=== PATIENT | female | born 1950 | race Caucasian/White ===

== ENCOUNTER 2020-02-27 15:03 | Outpatient (CLI) | payer MEDICARE, OTHER, SELFPAY ==
--- NOTE | 2020-02-27 15:10 | XRR_ITS ---
PROCEDURE INFORMATION: Exam: XR Right Foot Complete Exam date and time: 02/27/2020 3:29 PM Age: 69 years old Clinical indication: Other: Dm foot ulcer- medial foot near toes TECHNIQUE: Imaging protocol: XR Right foot. Views: 3 or more views. COMPARISON: No relevant prior studies available. FINDINGS: Bones/joints: Negative for acute bony abnormality. There is mild osteoarthritis seen Soft tissues: Unremarkable XR/XR foot RT min 3V* [id number] IMPRESSION: No acute bone abnormality.
== END 2020-02-27 15:04 | disposition home or self-care (01) ==
LOC: RAD 15:09
PROVIDERS: PCP Internal Medicine; Visit Provider Nurse Practitioner Family
DX: E11.621 Type 2 diabetes mellitus with foot ulcer (principal); L97.919 Non-pressure chronic ulcer of unspecified part of right lower leg with unspecified severity
CPT/HCPCS: 73630

== ENCOUNTER 2020-03-04 09:55 | Outpatient (CLI) | payer MEDICARE, OTHER, SELFPAY | END 2020-03-04 09:56 | disposition home or self-care (01) | LOC: WOUND 09:55 | PROVIDERS: PCP Internal Medicine; Visit Provider Thoracic Surgery (Cardiothoracic Vascular Surgery) | DX: E11.621 Type 2 diabetes mellitus with foot ulcer (principal); L97.512 Non-pressure chronic ulcer of other part of right foot with fat layer exposed | CPT/HCPCS: 11042; A6446; G0463 ==

== ENCOUNTER 2020-03-12 07:53 | Outpatient (CLI) | payer MEDICARE, OTHER, SELFPAY | END 2020-03-12 07:54 | disposition home or self-care (01) | LOC: WOUND 07:54 | PROVIDERS: PCP Internal Medicine; Visit Provider Thoracic Surgery (Cardiothoracic Vascular Surgery) | DX: E11.621 Type 2 diabetes mellitus with foot ulcer (principal); L97.511 Non-pressure chronic ulcer of other part of right foot limited to breakdown of skin | CPT/HCPCS: 11042 ==

== ENCOUNTER 2020-03-19 09:36 | Outpatient (CLI) | payer MEDICARE, OTHER, SELFPAY | END 2020-03-19 09:37 | disposition home or self-care (01) | LOC: WOUND 09:38 | PROVIDERS: PCP Internal Medicine; Visit Provider Thoracic Surgery (Cardiothoracic Vascular Surgery) | DX: E11.621 Type 2 diabetes mellitus with foot ulcer (principal); L97.511 Non-pressure chronic ulcer of other part of right foot limited to breakdown of skin | CPT/HCPCS: 97597; L3260 ==

== ENCOUNTER 2020-03-26 09:08 | Outpatient (CLI) | payer MEDICARE, OTHER, SELFPAY | END 2020-03-26 09:09 | disposition home or self-care (01) | LOC: WOUND 09:08 | PROVIDERS: PCP Internal Medicine; Visit Provider Emergency Medicine | DX: Z09 Encounter for follow-up examination after completed treatment for conditions other than malignant neoplasm (principal) | CPT/HCPCS: 99212 ==

== ENCOUNTER 2020-04-17 12:42 | Outpatient (CLI) | payer MEDICARE, OTHER, SELFPAY ==
--- NOTE | 2020-04-17 13:11 | MM_ITS ---
WS: [id number] BILATERAL DIGITAL SCREENING MAMMOGRAPHY WITH CAD CLINICAL INFORMATION: SCREENING HISTORY: Screening mammogram. No current complaints. COMPARISON: April 09, 2019 TECHNIQUE: Bilateral CC and MLO views. FINDINGS: The breasts are composed of heterogeneous fibroglandular density tissue, which can limit the detectio n of small underlying mass lesions. No suspicious mass, asymmetry, calcifications, or architectural d istortion. No evidence of malignancy. Lucent centered and punctate calcifications. MM/[place] [id number] IMPRESSION: BI-RADS: 2-Benign FOLLOW UP: 1 Year Follow-up Recommend return to annual screening mammography.
== END 2020-04-17 12:43 | disposition home or self-care (01) ==
LOC: RADSHAW 12:48
PROVIDERS: PCP Internal Medicine; Visit Provider Internal Medicine
DX: Z12.31 Encounter for screening mammogram for malignant neoplasm of breast (principal)
CPT/HCPCS: 77067

== ENCOUNTER → 2020-08-12 16:03 | Outpatient (BNVA) | payer MEDICARE, SELFPAY | PROVIDERS: PCP Internal Medicine; Visit Provider Internal Medicine | DX: E11.621 Type 2 diabetes mellitus with foot ulcer (principal); L97.509 Non-pressure chronic ulcer of other part of unspecified foot with unspecified severity; U07.1 COVID-19; E11.9 Type 2 diabetes mellitus without complications; I10 Essential (primary) hypertension | CPT/HCPCS: 80053; 83036; 85025 ==

== ENCOUNTER → 2020-10-07 13:50 | Outpatient (BNVA) | payer MEDICARE, SELFPAY | PROVIDERS: PCP Internal Medicine; Visit Provider Internal Medicine | DX: L98.9 Disorder of the skin and subcutaneous tissue, unspecified (principal); N64.52 Nipple discharge; E11.9 Type 2 diabetes mellitus without complications; I10 Essential (primary) hypertension | CPT/HCPCS: 84146; 84443 ==

== ENCOUNTER 2020-10-09 14:10 | Outpatient (CLI) | payer MEDICARE, SELFPAY ==
--- NOTE | 2020-10-09 14:30 | MM_ITS ---
WS: [id number] DIAGNOSTIC LEFT DIGITAL MAMMOGRAM WITH CAD LEFT breast ultrasound, limited HISTORY: N64.52 - Nipple discharge COMPARISON: 04/17/2020, 04/09/2019 and 03/28/2018 Technique: CC, MLO and ML views. Spot compression LEFT CC Breast composition: There are scattered areas of fibroglandular density. Increased linear density po sterior to the LEFT nipple was not present on the prior examinations. With history of nipple discharge there may be some debris or papilloma within the duct. LEFT breast ultrasound, limited. Posterior to the LEFT nipple near 12:00 is a dilated duct containing debris. There is no increased va scularity within this debris. This area of nodularity within the duct measures 3 x 3 x 3 mm. MM/[place] [id number] IMPRESSION: BI-RADS: 3-Probably Benign FOLLOW UP: 6 Month Follow-up There is a mildly dilated duct with nonvascular internal soft tissue debris. Th is may be duct ectasia. Without increased vascularity this is less likely to be a papilloma. Consider follow-up ultrasound in 6 months. If nipple discharge an d/or bleeding progress consider surgical evaluation for removal.
--- NOTE | 2020-10-09 15:00 | US_ITS ---
WS: [id number] DIAGNOSTIC LEFT DIGITAL MAMMOGRAM WITH CAD LEFT breast ultrasound, limited HISTORY: N64.52 - Nipple discharge COMPARISON: 04/17/2020, 04/09/2019 and 03/28/2018 Technique: CC, MLO and ML views. Spot compression LEFT CC Breast composition: There are scattered areas of fibroglandular density. Increased linear density po sterior to the LEFT nipple was not present on the prior examinations. With history of nipple discharge there may be some debris or papilloma within the duct. LEFT breast ultrasound, limited. Posterior to the LEFT nipple near 12:00 is a dilated duct containing debris. There is no increased va scularity within this debris. This area of nodularity within the duct measures 3 x 3 x 3 mm. US/US breast LT limited* [id number] IMPRESSION: BI-RADS: 3-Probably Benign FOLLOW UP: 6 Month Follow-up There is a mildly dilated duct with nonvascular internal soft tissue debris. Th is may be duct ectasia. Without increased vascularity this is less likely to be a papilloma. Consider follow-up ultrasound in 6 months. If nipple discharge an d/or bleeding progress consider surgical evaluation for removal.
== END 2020-10-09 14:11 | disposition home or self-care (01) ==
LOC: RADSHAW 14:14
PROVIDERS: PCP Internal Medicine; Visit Provider Internal Medicine
DX: N64.52 Nipple discharge (principal)
CPT/HCPCS: 76642; 77065

== ENCOUNTER → 2020-12-24 13:23 | Outpatient (BNVA) | payer MEDICARE, SELFPAY | PROVIDERS: PCP Internal Medicine; Visit Provider Surgery | DX: N60.42 Mammary duct ectasia of left breast (principal); Z20.822 Contact with and (suspected) exposure to COVID-19 | CPT/HCPCS: 87635 ==

== ENCOUNTER 2020-12-29 07:32 | Day surgery (SDC) | payer MEDICARE, SELFPAY ==
[2020-12-26 14:57] VITALS: BMI 33.6
[2020-12-29] VITALS (11 sets, daily range): BP systolic 152–197; BP diastolic 79–98; PULSE 62–78; RESP 16–18; TEMP 36.1–36.8; O2SAT 92–100
--- NOTE | 2020-12-29 | US_ITS ---
WS: [id number] ULTRASOUND-GUIDED LEFT BREAST NEEDLE LOCALIZATION HISTORY: Intraductal lesion. Procedure, risks and complications were explained to the patient. Consent is obtained. Skin is cleansed with ChloraPrep and anesthetized with 1% buffered lidocaine. Needle and guidewire pl aced through the area of concern with no complications. Guidewire is placed within the soft tissue wi thin the duct which is posterior to the nipple. Ultrasound guidance performed during the needle local ization. Guidewire is left within the lesion. Guidewire secured and no complications encountered. Pat ient is being transported to the OR suite. Specimen radiograph is also reviewed. Wire is within the specimen. The lesion is difficult to identif ied as the duct is collapsed. RECOMMENDATIONS: Diagnostic LEFT mammogram 6 months. US/US breast surgical specimen IMPRESSION: 1. Uncomplicated wire localization of a mass within the duct posterior to the LEFT nipple. PATHOLOGY RESULTS: Benign intraductal papilloma. No malignancy.
--- NOTE | 2020-12-29 07:47 | P.ANESASSM_ITS ---
Pre-Anesthetic Assessment Pre-Anesthetic Assessment: Height/Weight: Height 1.57 m Weight 83.461 kg Preop Diagnosis: bloody nipple drainage Proposed Procedure: Operation Date: 12/29/20 10:10 Proposed Procedures p Breast Biopsy Needle Localization [id number] N60.42(Left) - Joe Mcgrath MD Social: Social History: No alcohol and No tobacco Exam: Pre-Anes Outpt Exam: alert, oriented x 3, clear to auscultation b ilaterally and regular rate & rhythm Airway: Submandibular: WNL Cervical ROM: WNL MP: 2 Pulmonary: Pulmonary: None reported CV/HEM: CV/HEM: HTN Metabolic: Metabolic: DM Anesthetic Plan: ASA status: 3 Anesthesia: Anesthesia Evaluation, General, Choice and MAC Risk of > 500 ml blood loss (7ml/kg in children): No PFSH Anesthesia PFSH: Medical History (Updated 12/16/20 @ 16:21 by Joe Mcgrath MD) Arthritis Benign hypertension Glaucoma Primary insomnia Type 2 diabetes mellitus without complications Surgical History (Updated 12/16/20 @ 17:20 by Joe Mcgrath MD) H/O hysterectomy with oophorectomy H/O stem cell transplant joint injection S/P tonsillectomy and adenoidectomy Status post colonoscopy Status post creation of urethral sling by suprapubic approach Family History Other Cancer Hypertension Social History Smoking and tobacco status: never smoked Alcohol intake: never Household members: spouse Housing: House Marital status: Current occupational status: retired History of recent travel: No Data Anesthesia Cardiac Studies: No Data to Display
--- NOTE | 2020-12-29 08:09 | W.PM.OPSUD ---
Surgery/Procedure H&P Update DATE OF PROCEDURE: December 29, 2020 DATE H&P PERFORMED: 12/16/20 H&P UPDATE INFORMATION: I have reviewed H&P completed within last 30 days, I have examined patient prior to procedure and No changes to prior documentation PREOP DIAGNOSIS: bloody nipple drainage PLANNED PROCEDURE: Operation Date: 12/29/20 10:10 Proposed Procedures p Breast Biopsy Needle Localization [id number] N60.42(Left) - Joe Mcgrath MD
[2020-12-29 08:19] LABS: Glucose Point of Care 148 mg/dL (70-110)
[2020-12-29] MEDS: sodium chloride 0.9% 1,000 ML 30 ML IV (08:24)
--- NOTE | 2020-12-29 08:28 | US_ITS ---
WS: [id number] ULTRASOUND-GUIDED LEFT BREAST NEEDLE LOCALIZATION HISTORY: Intraductal lesion. Procedure, risks and complications were explained to the patient. Consent is obtained. Skin is cleansed with ChloraPrep and anesthetized with 1% buffered lidocaine. Needle and guidewire pl aced through the area of concern with no complications. Guidewire is placed within the soft tissue wi thin the duct which is posterior to the nipple. Ultrasound guidance performed during the needle local ization. Guidewire is left within the lesion. Guidewire secured and no complications encountered. Pat ient is being transported to the OR suite. Specimen radiograph is also reviewed. Wire is within the specimen. The lesion is difficult to identif ied as the duct is collapsed. RECOMMENDATIONS: Diagnostic LEFT mammogram 6 months. US/[place] [id number] IMPRESSION: 1. Uncomplicated wire localization of a mass within the duct posterior to the LEFT nipple. PATHOLOGY RESULTS: Benign intraductal papilloma. No malignancy.
[2020-12-29] MEDS: lidocaine 1% INJ 20 mL IM (10:58)
[2020-12-29] MEDS: fentaNYL 50 mcg/mL INJ 2mL IVP ×2 (11:17→11:22)
--- NOTE | 2020-12-29 11:17 | PM.OP ---
Operative Report Date of procedure: December 29, 2020 Pre-op Diagnosis: 1. Bloody left nipple drainage 2. Mammary duct ectasia Post-op Findings: Same Procedure Done: Wire localization left breast lumpectomy Specimens removed/disposition: Left breast mass, short superior, long stitch lateral Surgeon: Joe Mcgrath Anesthesia: MAC Condition: stable Disposition: PACU Procedure: The wire localization of the mammographic abnormality was performed by the radiologist under ultrasound guidance and the patient was transferred to operating room and placed under MAC after IV antibiotic had been administered. The left breast was prepped and draped in a manner . A curvilinear incision was made over the areolar margin at 3'o clock medial to the marking over the mammographic abnormality, subcutaneous tissue was divided and skin flaps were raised medially and laterally. The localization wire was grasped through the incision and using electrocautery the wire along with the breast tissue containing mammographic abnormality was dissected free from the surrounding tissue underneath the nipple. Using 2-0 silk suture, short stitch was placed superiorly and a long stitch was placed laterally.the duct opening which was bleeding was identified with a lacrimal probe and breast tissue underneath the dermis was excised around this duct. The wound was irrigated with saline, hemostasis ensured with electrocautery and subcutaneous tissues approximated using 3-0 running Vicryl suture and skin was closed using running subcuticular 4-0 Monocryl sutures and Dermabond. 1% lidocaine with 0.5% Marcaine was infiltrated into the lumpectomy cavity. Fluffs were used for pressure dressing. Patient was transferred to recovery room and stable condition The lumpectomy specimens were sent to mammography to obtain radiological confirmation of complete excision of the mammographic abnormality. Discussed with Dr. Wilson unfortunately collapsed and could not be visualized on the specimen.
== END 2020-12-29 12:55 | disposition home or self-care (01) ==
PROVIDERS: PCP Internal Medicine; Visit Provider Surgery
PROC: (CPT 19301; principal; 2020-12-29 10:00)
DX: N60.42 Mammary duct ectasia of left breast (principal); I10 Essential (primary) hypertension; E11.9 Type 2 diabetes mellitus without complications; M19.90 Unspecified osteoarthritis, unspecified site
CPT/HCPCS: 19301; 19285; 36416; 82962; 88305; C1889; J0690; J2250; J2704; J3010; J3490; J7030

== ENCOUNTER → 2021-04-09 15:01 | Outpatient (BNVA) | payer MEDICARE, SELFPAY | PROVIDERS: PCP Internal Medicine; Visit Provider Internal Medicine | DX: I10 Essential (primary) hypertension (principal); E11.621 Type 2 diabetes mellitus with foot ulcer; L97.509 Non-pressure chronic ulcer of other part of unspecified foot with unspecified severity | CPT/HCPCS: 83036 ==

== ENCOUNTER 2021-07-01 15:07 | Outpatient (CLI) | payer MEDICARE, SELFPAY ==
--- NOTE | 2021-07-01 15:45 | USCV_ITS ---
Jovanna Berg Age: 71 Gender: F : 1950 Exam Date: 07/01/2021 15:28 Ordering Phys: Jaron Pennington MD Technologist: Ericka Espinoza [place] [facility] [place]: right leg swelling HISTORY: right calf pain, swelling PROCEDURES: Venous duplex imaging was performed in only the right lower extremity. The following venous structures were evaluated: common femoral vein, profunda vein, proximal portion of the greater saphenous vein, superficial femoral vein, and the popliteal vein. In addition, the posterior tibial and peroneal trunk were evaluated. FINDINGS: Edema seen in right medial calf area of interest. Normal 2-D Doppler and augmentation and compressibility throughout the lower extremity venous structures. Additional imaging through the proximal calf veins also reveals no thrombus. Limited evaluation of the greater saphenous vein is patent with no thrombus. CONCLUSIONS No DVT right lower extremity. Mild edema in the soft tissue right calf. Dr. Zakia Wilson DO (Electronically Signed) Final Date: 01 July 2021 15:56 S
== END 2021-07-01 15:08 | disposition home or self-care (01) ==
PROVIDERS: PCP Internal Medicine; Visit Provider Internal Medicine
DX: M79.89 Other specified soft tissue disorders (principal)
CPT/HCPCS: 93971

== ENCOUNTER 2022-02-12 11:38 | Outpatient (CLI) | payer MEDICARE, SELFPAY ==
--- NOTE | 2022-02-12 11:49 | MM_ITS ---
WS: [id number] VIEWS: MLO and CC views both breasts. 3D digital tomosynthesis is also included in this exam. Comparison made with prior exam of 02/18/2016, 03/01/2017, 03/28/2018, 04/09/2019, 04/17/2020. Findings: There was no sign of mass, architectural distortion or suspicious calcification in either breast. He terogeneously dense MM/[place] [id number] Impression: BI-RADS: 2-Benign FOLLOW-UP: 1 Year Follow-up This mammogram was also analyzed by the Computer Aided Detection System R2 Imag e Section Hand Helper.
== END 2022-02-12 11:39 | disposition home or self-care (01) ==
PROVIDERS: PCP Internal Medicine; Visit Provider Internal Medicine
DX: Z12.31 Encounter for screening mammogram for malignant neoplasm of breast (principal)
CPT/HCPCS: 77063; 77067

== ENCOUNTER → 2022-02-15 14:24 | Outpatient (BNVA) | payer MEDICARE, SELFPAY | PROVIDERS: PCP Internal Medicine; Visit Provider Internal Medicine | DX: I10 Essential (primary) hypertension (principal); E11.621 Type 2 diabetes mellitus with foot ulcer; L97.509 Non-pressure chronic ulcer of other part of unspecified foot with unspecified severity; R22.41 Localized swelling, mass and lump, right lower limb | CPT/HCPCS: 80053; 80061; 83721; 84443; 85025 ==

== ENCOUNTER 2022-06-17 13:34 | Outpatient (CLI) | payer MEDICARE, SELFPAY ==
[2022-06-17 14:14] LABS: Estmated Average Glucose 197; Hemoglobin A1C 8.5 % (4.0-6.0)
== END 2022-06-17 13:35 | disposition home or self-care (01) ==
LOC: LAB 13:36
PROVIDERS: PCP Internal Medicine; Visit Provider Internal Medicine
DX: E11.9 Type 2 diabetes mellitus without complications (principal)
CPT/HCPCS: 36415; 83036

== ENCOUNTER → 2022-12-22 13:49 | Outpatient (BNVA) | payer MEDICARE, SELFPAY | PROVIDERS: PCP Internal Medicine; Visit Provider Podiatrist Foot & Ankle Surgery | DX: S92.351A Displaced fracture of fifth metatarsal bone, right foot, initial encounter for closed fracture (principal); X58.XXXA Exposure to other specified factors, initial encounter; E11.9 Type 2 diabetes mellitus without complications; Z79.84 Long term (current) use of oral hypoglycemic drugs | CPT/HCPCS: 73630 ==

== ENCOUNTER 2022-12-22 15:16 | Outpatient (CLI) | payer MEDICARE, SELFPAY | END 2022-12-22 15:17 | disposition home or self-care (01) | LOC: SPT 15:19 | PROVIDERS: PCP Internal Medicine; Visit Provider Podiatrist Foot & Ankle Surgery | DX: Z46.89 Encounter for fitting and adjustment of other specified devices (principal); S92.351D Displaced fracture of fifth metatarsal bone, right foot, subsequent encounter for fracture with routine healing; X58.XXXD Exposure to other specified factors, subsequent encounter | CPT/HCPCS: 97760; 99204; L4361 ==

== ENCOUNTER → 2023-01-13 15:01 | Outpatient (BNVA) | payer MEDICARE, SELFPAY | PROVIDERS: PCP Internal Medicine; Visit Provider Podiatrist Foot & Ankle Surgery | DX: S92.351A Displaced fracture of fifth metatarsal bone, right foot, initial encounter for closed fracture (principal); X58.XXXA Exposure to other specified factors, initial encounter; E11.9 Type 2 diabetes mellitus without complications; Z79.84 Long term (current) use of oral hypoglycemic drugs | CPT/HCPCS: 73630; 99213 ==

== ENCOUNTER → 2023-01-26 14:43 | Outpatient (BNVA) | payer MEDICARE, SELFPAY | PROVIDERS: PCP Internal Medicine; Visit Provider Podiatrist Foot & Ankle Surgery | DX: S92.351A Displaced fracture of fifth metatarsal bone, right foot, initial encounter for closed fracture (principal); X58.XXXA Exposure to other specified factors, initial encounter; E11.9 Type 2 diabetes mellitus without complications; Z79.84 Long term (current) use of oral hypoglycemic drugs | CPT/HCPCS: 73630; 99213 ==

== ENCOUNTER → 2023-02-09 09:35 | Outpatient (BNVA) | payer MEDICARE, SELFPAY | PROVIDERS: PCP Internal Medicine; Visit Provider Podiatrist Foot & Ankle Surgery | DX: S92.351A Displaced fracture of fifth metatarsal bone, right foot, initial encounter for closed fracture (principal); X58.XXXA Exposure to other specified factors, initial encounter; E11.9 Type 2 diabetes mellitus without complications; Z79.84 Long term (current) use of oral hypoglycemic drugs | CPT/HCPCS: 73630; 99213 ==

== ENCOUNTER 2023-02-28 11:31 | Outpatient (CLI) | payer MEDICARE, SELFPAY ==
--- NOTE | 2023-02-28 11:37 | MM_ITS ---
WS: [id number] SCREENING DIGITAL TOMOSYNTHESIS MAMMOGRAM WITH CAD HISTORY: SCREENING COMPARISON: 02/12/2022, 04/17/2020 Bilateral CC and MLO with tomosynthesis views submitted. Synthetic mammography reviewed. Computer aid ed detection analyzed. Breast composition: The breasts are heterogeneously dense, which may obscure small masses. No suspici ous masses, microcalcifications or architectural distortion. Benign calcifications in each breast. MM/[place] [id number] IMPRESSION: BI-RADS: 2-Benign FOLLOW UP: 1 Year Follow-up
== END 2023-02-28 11:32 | disposition home or self-care (01) ==
PROVIDERS: PCP Internal Medicine; Visit Provider Internal Medicine
DX: Z12.31 Encounter for screening mammogram for malignant neoplasm of breast (principal)
CPT/HCPCS: 77063; 77067

== ENCOUNTER → 2023-03-03 08:49 | Outpatient (BNVA) | payer MEDICARE, SELFPAY | PROVIDERS: PCP Internal Medicine; Visit Provider Podiatrist Foot & Ankle Surgery | DX: S92.354A Nondisplaced fracture of fifth metatarsal bone, right foot, initial encounter for closed fracture (principal); X58.XXXA Exposure to other specified factors, initial encounter; E11.9 Type 2 diabetes mellitus without complications; Z79.84 Long term (current) use of oral hypoglycemic drugs | CPT/HCPCS: 73630; 99213 ==

== ENCOUNTER 2023-03-09 07:29 | Outpatient (CLI) | payer MEDICARE, SELFPAY ==
--- NOTE | 2023-03-09 07:42 | MM_ITS ---
WS: [id number] ADDITIONAL VIEWS RIGHT MAMMOGRAM WITH DIGITAL BREAST TOMOSYNTHESIS. RIGHT BREAST ULTRASOUND HISTORY: RT BR BLOODY DISCHARGE COMPARISON: 02/28/2023, 02/12/2022 RIGHT MAMMOGRAM: Spot compression views and true ML with digital breast tomosynthesis and SM. Mildly prominent but unchanged ducts posterior to the nipple. There is no mass. No nipple retraction. RIGHT BREAST ULTRASOUND 2-D and color Doppler imaging submitted. There is a soft tissue mass with increased vascularity within the duct posterior to the RIGHT nipple. This corresponds to the prominent duct seen by mammography. Mass measures at least 6.4 x 7 mm and do es extend towards the nipple. There is an adjacent additional mildly prominent duct which does not co ntain a mass. MM/[place] [id number] IMPRESSION: BI-RADS: 4-Suspicious Finding-Biopsy Should Be Considered FOLLOW UP: Biopsy Recommended 1. Ultrasound-guided biopsy recommended of the intraductal mass posterior to t he RIGHT nipple. Favor this is probably a papilloma. Biopsy and possible surgic al removal recommended. Notified Jaron Pennington MD at 03/09/2023 8:35 AM.
== END 2023-03-09 07:30 | disposition home or self-care (01) ==
LOC: RAD 07:32
PROVIDERS: PCP Internal Medicine; Visit Provider Internal Medicine
DX: N64.52 Nipple discharge (principal); N63.10 Unspecified lump in the right breast, unspecified quadrant
CPT/HCPCS: 76642; 77061; G0279

== ENCOUNTER 2023-03-23 11:53 | Outpatient (CLI) | payer MEDICARE, SELFPAY ==
--- NOTE | 2023-03-23 12:02 | US_ITS ---
WS: [id number] ULTRASOUND-GUIDED RIGHT BREAST BIOPSY CLINICAL INFORMATION: ABNORMAL MAMMO COMPARISON: March 09, 2023 FINDINGS: The procedure including risks, benefits, and complications were discussed with the patient who agreed to proceed. Using sterile technique patient was prepped and draped in the usual sterile fashion. Aft er 1% lidocaine utilizing real-time ultrasound guidance 6 14-gauge cores were obtained of the RIGHT b reast lesion at the nipple. Biopsy clip was not placed. No immediate complications. Pathology demonstrates A. Breast, right, posterior to nipple, ultrasound-guided biopsy: - Small focus of benign intraductal papilloma in a background of stromal sclerosis. - No malignancy identified. US/[place] [id number] IMPRESSION: 1. Uncomplicated ultrasound-guided RIGHT breast biopsy. 2. The pathology demonstrates Small focus of benign intraductal papilloma in a background of stromal sclerosis. 3. Considerably history of bloody nipple discharge recommend surgical excision of the intraductal papilloma. 4. If surgical excision is not performed, recommend 6 month follow-up RIGHT br east diagnostic mammography and ultrasound. BI-RADS: 3-Probably Benign FOLLOW UP: Surgical Biopsy Recommended
== END 2023-03-23 11:54 | disposition home or self-care (01) ==
LOC: RAD 11:54
PROVIDERS: PCP Internal Medicine; Visit Provider Internal Medicine
DX: R92.8 Other abnormal and inconclusive findings on diagnostic imaging of breast (principal)
CPT/HCPCS: 19083; 88305

== ENCOUNTER → 2023-04-14 11:31 | Outpatient (BNVA) | payer MEDICARE, SELFPAY | PROVIDERS: PCP Internal Medicine; Visit Provider Podiatrist Foot & Ankle Surgery | DX: M79.671 Pain in right foot (principal); E11.9 Type 2 diabetes mellitus without complications; Z79.84 Long term (current) use of oral hypoglycemic drugs | CPT/HCPCS: 73630; 99213 ==

== ENCOUNTER 2024-02-14 08:21 | Outpatient (CLI) | payer SELFPAY ==
[2024-02-14 09:21] LABS: HF Add Manual Diff No
[2024-02-14 09:28] LABS: Basophils % 0.6 %; Eosinophils # 0.1 10^3/uL (0.0-0.8); Eosinophils % 2.4 %; Hematocrit 39.5 % (36-47); Lymphocytes # 1.2 10^3/uL (0.8-4.8); Lymphocytes % 25.4 %; Mean Corpuscular HGB Conc 32.4 g/dL (30-55); Mean Corpuscular Volume 92.5 fl (85-98); Mean Platelet Volume 11.6 fL (7.4-10.4); Monocytes # 0.4 10^3/uL (0.2-0.9); Monocytes % 8.4 %; Neutrophils # 2.93 10^3/uL (1.8-7.7); Nucleated Red Blood Cells % 0 %; Platelet Count 191 10^3/cmm (157-399); Red Blood Count 4.27 10^6/uL (3.85-5.65); White Blood Count 4.65 10^3/uL (3.29-11.43)
[2024-02-14 09:46] LABS: Alanine Aminotransferase 18 U/L (0-33); Albumin Level 4.5 g/dL (3.5-5.2); Alkaline Phosphatase 65 U/L (35-105); Aspartate Amino Transferase 19 U/L (0-32); Blood Urea Nitrogen 20 mg/dL (8-23); Calcium 9.7 mg/dL (8.5-10.5); Carbon Dioxide 25 mmol/L (22-29); Chloride 101 mmol/L (98-107); Cholesterol 265 mg/dL (0-200); Glucose 150 mg/dL (65-115); HDL Cholesterol 53 mg/dL (60-100); LDL Cholesterol Calculated 166 mg/dL (50-129); LDL HDL Ratio 3.13 RATIO (0.00-3.22); Osmolality Calculated 293 mOsm/kg (285-295); Sodium 139 mmol/L (136-145); Thyroid Stimulating Hormone 2.55 uIU/mL (0.27-4.20); Total Bilirubin 0.5 mg/dL (0.15-1.2); Total Protein 7.5 g/dL (6.6-8.7); Triglycerides 229 mg/dL (0-150)
[2024-02-14 09:48] LABS: Estmated Average Glucose 140; Hemoglobin A1C 6.5 % (4.0-6.0)
[2024-02-14 10:31] LABS: Anion Gap 17.3 (5-19); Potassium 4.3 mmol/L (3.5-5.1)
== END 2024-02-14 08:22 | disposition home or self-care (01) ==
PROVIDERS: PCP Internal Medicine; Visit Provider Dermatology
DX: Z01.89 Encounter for other specified special examinations (principal)
CPT/HCPCS: 36415

== ENCOUNTER 2024-06-23 09:46 | Emergency (ER) | payer MEDICARE, SELFPAY ==
[2024-06-23 09:50] VITALS: BP 125/63; PULSE 75; RESP 18; TEMP 36.5; O2SAT 96; BMI 32.0
[2024-06-23 09:57] VITALS: BP 107/43; PULSE 77; O2SAT 95
--- NOTE | 2024-06-23 10:01 | ECG_ITS ---
[employer] Test Date: 2024-06-23 Pat Name: Jovanna Berg Department: Room: Gender: Female [employer]: : 1950 Requested By: Mally Luna Order Number: [id number] Lea MD: CALI LEWIS Measurements Intervals Many Rate: 84 P: 41 WY: 191 QRS: -18 QRSD: 93 T: 43 QT: 373 QTc: 441 Interpretive Statements SINUS RHYTHM POSSIBLE ANTERIOR MYOCARDIAL INFARCTION , OF INDETERMINATE AGE [30 ms Q WAVE IN V3/V4, OR R < 0.2 mV IN V4] INFERIOR MYOCARDIAL INFARCTION , PROBABLY OLD [40+ ms Q WAVE AND/OR ST/T ABNORMALITY IN II/aVF] No previous ECG available for comparison Electronically Signed On 06-23-2024 18:08:07 CDT by CALI LEWIS [email or web address]
--- NOTE | 2024-06-23 10:01 | CTR_ITS ---
PROCEDURE INFORMATION: Exam: CT Head Without Contrast Exam date and time: 06/23/2024 10:18 AM Age: 74 years old Clinical indication: Altered mental status/memory loss and visual disturbance; Confusion or disorientation; Additional info: Syncope TECHNIQUE: Imaging protocol: Computed tomography of the head without contrast. Radiation optimization: All CT scans at this facility use at least one of these dose optimization techniques: automated exposure control; mA and/or kV adjustment per patient size (includes targeted exams where dose is matched to clinical indication); or iterative reconstruction. COMPARISON: No relevant prior studies available. RADIATION DOSE METRICS: Total DLP (mGy-cm): 1080.58 FINDINGS: Brain: Severe nonspecific white matter low attenuation which may be related to microvascular ischemic changes. No acute confluent lobar ischemic infarct. No acute intracranial hemorrhage. Cerebral ventricles: The ventricles and sulci are normal in size and shape for the patient's stated age. Paranasal sinuses: No fluid levels. Mastoid air cells: Visualized mastoid air cells are well aerated. Bones: No acute calvarial fracture. Soft tissues: Visualized soft tissues are unremarkable. CT/CT head wo con* [id number] IMPRESSION: No acute intracranial abnormality. If symptoms persist, consider further evaluation with MRI, if MRI is clinically safe to obtain.
--- NOTE | 2024-06-23 10:02 | ED_ITS ---
HPI - Fall 2 General: Chief Complaint: Fall Stated Complaint: AMS; fall Time Seen by Provider: 06/23/24 09:56 History of Present Illness: 74-year-old female who presents the [facility] by ambulance after having had what sounds like a syncopal episode. Apparently her found her down on the ground. She does not remember passing out. Apparently this was not witnessed. She said she been feeling bad since she had her flu and COVID shots the other day. She has no specific pain at this point. No head pain. No neck pain. No chest pain. No abdominal pain. No nausea or vomiting. No fevers. Related Data Home Medications Medication Instructions Recorded Confirmed biotin 1 mg tablet 1 mg PO DAILY 01/23/20 04/14/23 coenzyme Q10 200 mg capsule (Co 200 mg PO DAILY 01/23/20 04/14/23 Q-10) latanoprost 0.005 % eye drops 1 drop ophthalmic (eye) .AT HS 01/23/20 04/14/23 magnesium oxide 500 mg capsule 500 mg PO DAILY 01/23/20 04/14/23 multivitamin 1 tab PO DAILY 01/23/20 04/14/23 brimonidine 0.2 %-timolol 0.5 % 1 drop ophthalmic (eye) BID 04/10/20 04/14/23 eye drops (Combigan) Previous Rx's Medication Instructions Recorded cyanocobalamin (vitamin B-12) See Rx Instructions .Route 06/26/21 1,000 mcg/mL injection solution .COMPLEX #6 mL blood sugar diagnostic (True #100 ea 11/30/21 Metrix Glucose Test Strip) triamcinolone acetonide 0.1 % 1 applic topical BID #80 grams 01/26/22 topical ointment valsartan 320 mg tablet 320 mg PO DAILY #90 tabs 02/02/22 desvenlafaxine succinate 50 mg 50 mg PO DAILY #90 tabs 02/15/22 tablet,extended release 24 hr (Pristiq) metformin 500 mg tablet,extended See Rx Instructions .Route 04/07/22 release 24 hr .COMPLEX #360 tabs spironolactone 25 1 tab PO DAILY #90 tabs 04/07/22 mg-hydrochlorothiazide 25 mg tablet (Aldactazide) lancets 33 gauge (TRUEplus Lancets) 33 gauge .Route QID #100 ea 05/11/22 estradiol 1 mg tablet See Rx Instructions .Route 06/17/22 .COMPLEX #90 tabs meloxicam 15 mg tablet 15 mg PO DAILY #90 tabs 06/17/22 amlodipine 5 mg tablet 5 mg PO DAILY #90 tabs 07/08/22 CAM Boot #1 ea 12/22/22 cefdinir 300 mg capsule 300 mg PO BID 5 days #10 caps 06/23/24 Allergies Allergy/AdvReac Type Severity Reaction Status Date / Time canagliflozin Allergy ALGY-Rash Verified 04/14/23 11:25 [From Invokamet] metformin [From Invokamet] Allergy ALGY-Rash Verified 04/14/23 11:25 Review of Systems 2 Narrative: Constitutional symptoms: Negative except as documented in HPI. Skin symptoms: Negative except as documented in HPI. Eye symptoms: Negative except as documented in HPI. ENMT symptoms: Negative except as documented in HPI. Respiratory symptoms: Negative except as documented in HPI. Cardiovascular symptoms: Negative except as documented in HPI. Gastrointestinal symptoms: Negative except as documented in HPI. Genitourinary symptoms: Negative except as documented in HPI. Musculoskeletal symptoms: Negative except as documented in HPI. Neurologic symptoms: Negative except as documented in HPI. Psychiatric symptoms: Negative except as documented in HPI. Endocrine symptoms: Negative except as documented in HPI. PFSH ED 2 PFSH: Medical History Arthritis Benign hypertension Glaucoma Necrobiosis diabeticorum Primary insomnia Type 2 diabetes mellitus without complications Surgical History H/O hysterectomy with oophorectomy H/O stem cell transplant joint injection S/P lumpectomy, left breast (12/29/20) S/P tonsillectomy and adenoidectomy Status post colonoscopy Status post creation of urethral sling by suprapubic approach Family History Other Cancer Hypertension Social History Smoking and tobacco/nicotine status: never used tobacco/nicotine Alcohol intake: never Substance/Drug Use: never Household members: spouse Housing: House Marital status: Current occupational status: retired Physical Exam 2 Narrative: EXAM NARRATIVE: General: Alert, no acute distress. Skin: Warm, dry. Head: Normocephalic, atraumatic. Neck: Supple, trachea midline. Eye: Extraocular movements are intact. Ears, nose, mouth and throat: mucosa moist. Cardiovascular: Regular, Normal peripheral perfusion. Respiratory: Lungs are clear to auscultation, respirations are non-labored, breath sounds are equal, Symmetrical chest wall expansion. Gastrointestinal: Soft, Nontender, Non distended Musculoskeletal: Normal ROM, no deformity. Neurological: Alert and oriented, No focal neurological deficit observed. Psychiatric: Cooperative, appropriate mood & affect. Course 2 Vital Signs: Vital signs: Vital Signs Temperature 97.7 F 06/23/24 09:50 Pulse Rate 79 06/23/24 12:44 Respiratory Rate 18 06/23/24 09:50 Blood Pressure 110/64 06/23/24 12:44 Pulse Oximetry 95 06/23/24 12:44 Oxygen Delivery Me thod Room Air 06/23/24 11:47 MDM - Fall Medical Decision Making Medical decision making: Differential diagnosis including but not limited to and based on the above HPI, review of systems and physical exam in this patient with syncope: Vasovagal, orthostatics hypotension, cardiac dysrhythmia, myocardial infarction, infection and hypotension, Orders placed to evaluate differential diagnosis based on the above differential, HPI and physical exam CT head: No acute intracranial process. no intracranial hemorrhage, no evidence of infarct. no evidence of acute fracture.This was reviewed and interpreted by myself the ER physician. EKG: Time 11:03 AM. Rate 84. Normal sinus rhythm, No ST-T changes, no ectopy, normal DC & QRS intervals, This was reviewed and interpreted by myself the ER physician at 11:06 AM Lab Review: Laboratory results were reviewed and interpreted by myself the emergency room physician. No leukocytosis. No anemia. BUN/creatinine are 25 and 1 which is at or slightly above her baseline. Urinalysis is concentrated and has 5-10 whites and 1+ bacteria so likely has urinary tract infection and dehydration. I reviewed the patient's medical record. Reexamination: Patient remained stable. No increased work of breathing. No altered mental status. No focal motor deficits. Assessment and plan: Syncope Dehydration Urinary tract infection ?IV Rocephin. Encouraged p.o. fluids. - Discharged home - Discussed findings and plan with patient. Answered any questions. - All laboratory values were reviewed and interpreted personally by myself, the ER physician - All imaging was reviewed and interpreted personally by myself, the ER physician. - Evaluation and treatment of this problem were appropriate in the emergency setting Lab Data 06/23/24 10:11 06/23/24 10:[address] 06/23/24 10:01 IMPRESSION: No acute intracranial abnormality. If symptoms persist, consider further evaluation with MRI, if MRI is clinically safe to obtain. Laboratory Results WBC 3.71 10^3/uL (3.29-11.43) 06/23/24 10:11 RBC 4.42 10^6/uL (3.85-5.65) 06/23/24 10:11 Hgb 12.90 g/dL (11.27-16.99) 06/23/24 10:11 Hct 38.9 % (36-47) 06/23/24 10:11 MCV 88.0 fl (85-98) 06/23/24 10:11 MCH 29.2 pg (27-33) 06/23/24 10:11 MCHC 33.2 g/dL (30-55) 06/23/24 10:11 RDW 12.8 % (12.1-15.1) 06/23/24 10:11 Plt Count 156 10^3/cmm (157-399) L 06/23/24 10:11 MPV 10.1 fL (7.4-10.4) 06/23/24 10:11 Neut % (Auto) 72.9 % 06/23/24 10:11 Lymph % (Auto) 12.1 % 06/23/24 10:11 [place] % (Auto) 12.4 % 06/23/24 10:11 Eos % (Auto) 1.6 % 06/23/24 10:11 Baso % (Auto) 0.5 % 06/23/24 10:11 Neut # (Auto) 2.70 10^3/uL (1.8-7.7) 06/23/24 10:11 Lymph # (Auto) 0.5 10^3/uL (0.8-4.8) L 06/23/24 10:11 [place] # (Auto) 0.5 10^3/uL (0.2-0.9) 06/23/24 10:11 Eos # (Auto) 0.1 10^3/uL (0.0-0.8) 06/23/24 10:11 Baso # (Auto) 0.0 10^3/uL (0.0-0.1) 06/23/24 10:11 Nucleated RBC % (auto) 0 % 06/23/24 10:11 Nucleated RBCs # 0.0 /100WBC 06/23/24 10:11 Sodium 135 mmol/L (136-145) L 06/23/24 10:11 Potassium 4.1 mmol/L (3.5-5.1) 06/23/24 10:11 Chloride 97 mmol/L (98-107) L 06/23/24 10:11 Carbon Dioxide 24 mmol/L (22-29) 06/23/24 10:11 Anion Gap 18.1 (5-19) 06/23/24 10:11 BUN 25 mg/dL (8-23) H 06/23/24 10:11 Creatinine 1.0 mg/dL (0.5-0.9) H 06/23/24 10:11 GFR Calculation Not Reportable 06/23/24 10:11 Glucose 161 mg/dL (65-115) H 06/23/24 10:11 Calculated Osmolality 288 mOsm/kg (285-295) 06/23/24 10:11 Calcium 9.0 mg/dL (8.5-10.5) 06/23/24 10:11 Total Bilirubin 0.8 mg/dL (0.15-1.2) 06/23/24 10:11 AST 22 U/L (0-32) 06/23/24 10:11 ALT 19 U/L (0-33) 06/23/24 10:11 Alkaline Phosphatase 82 U/L (35-105) 06/23/24 10:11 Troponin T Baseline 13 ng/L (0-10) H 06/23/24 10:11 Troponin T 120 Minute 12.91 ng/L (0-10) H 06/23/24 12:03 Delta Troponin T -0.09 ABS# (0-10) L 06/23/24 12:03 Total Protein 6.8 g/dL (6.6-8.7) 06/23/24 10:11 Albumin 4.4 g/dL (3.5-5.2) 06/23/24 10:11 Globulin 2.4 g/dL (1.3-4.6) 06/23/24 10:11 Urine Color Dark yellow (Yellow) A 06/23/24 11:53 Urine Appearance Cloudy (CLEAR) A 06/23/24 11:53 Urine pH 5.0 (5-7) 06/23/24 11:53 Ur Specific [place] 1.028 (1.005-1.030) 06/23/24 11:53 Urine Protein 1+ (Negative) A 06/23/24 11:53 Urine Glucose (UA) Negative (Normal) 06/23/24 11:53 Urine Ketones Trace (Negative) 06/23/24 11:53 Urine Blood Negative (Negative) 06/23/24 11:53 Urine Nitrate Negative (Negative) 06/23/24 11:53 Urine Bilirubin 1+ (Negative) H 06/23/24 11:53 Urine Urobilinogen 1.0 mg/dL (Negative) 06/23/24 11:53 Ur Leukocyte Esterase 1+ (Negative) A 06/23/24 11:53 Urine RBC 3-5 /hpf (0-2) 06/23/24 11:53 Urine WBC 5-10 /hpf (0-5) H 06/23/24 11:53 Ur Squamous Epith Cells 11-20 /hpf (0-5) 06/23/24 11:53 Amorphous Sediment Not Reportable 06/23/24 11:53 Urine Bacteria 1+ /hpf (NONE) H 06/23/24 11:53 Hyaline Casts 51.70 /lpf 06/23/24 11:53 Urine Mucus 1+ /hpf 06/23/24 11:53 All radiology interpretation(s) finalized by discharge Discharge Plan Discharge Patient Disposition: Home Clinical Impression: Syncope, Urinary tract infection Condition: Stable Prescriptions: New cefdinir 300 mg capsule 300 mg PO BID 5 Days Qty: 10 0RF No Action Combigan 0.2-0.5 % drops 1 drop ophthalmic (eye) BID coenzyme Q10 [Co Q-10] 200 mg capsule 200 mg PO DAILY magnesium oxide 500 mg capsule 500 mg PO DAILY biotin 1 mg tablet 1 mg PO DAILY multivitamin Tablet 1 tab PO DAILY latanoprost 0.005 % drops 1 drop ophthalmic (eye) .AT HS triamcinolone acetonide 0.1 % ointment 1 applic topical BID Qty: 80 2RF Rx Instructions: Apply to affected area Tuesday-Tuesday for 4 weeks, then every other week for 1 month. Not for face. amlodipine 5 mg tablet 5 mg PO DAILY Qty: 90 3RF (DME) CAM Boot See Rx Instructions .Route .MEDSUPPLY Qty: 1 0RF Rx Instructions: As directed estradiol 1 mg tablet See Rx Instructions .ROUTE .COMPLEX Qty: 90 3RF Dose Instruction: TAKE 1 TABLET BY MOUTH EVERY DAY OFF 1 WEEK REPEAT CYCLE Rx Instructions: TAKE 1 TABLET BY MOUTH EVERY DAY OFF 1 WEEK REPEAT CYCLE meloxicam 15 mg tablet 15 mg PO DAILY Qty: 90 3RF lancets [TRUEplus Lancets] 33 gauge misc 33 gauge .ROUTE QID Qty: 100 3RF Rx Instructions: 33 gauge four times daily; cyanocobalamin (vitamin B-12) 1,000 mcg/mL solution See Rx Instructions .ROUTE .COMPLEX Qty: 6 6RF Dose Instruction: INJECT 1ML INTRAMUSCULARLY EVERY 14 DAYS (2 WEEKS) Rx Instructions: INJECT 1ML INTRAMUSCULARLY EVERY 14 DAYS (2 WEEKS) (DME) True Metrix Glucose Test Strip Strip See Rx Instructions .ROUTE .MEDSUPPLY Qty: 100 3RF Rx Instructions: Check blood sugar daily as directed valsartan 320 mg tablet 320 mg PO DAILY Qty: 90 3RF desvenlafaxine succinate [Pristiq] 50 mg tablet extended release 24 hr 50 mg PO DAILY Qty: 90 3RF metformin 500 mg tablet extended release 24 hr See Rx Instructions .ROUTE .COMPLEX Qty: 360 3RF Dose Instruction: TAKE 4 TABLETS BY MOUTH EVERY DAY Rx Instructions: TAKE 4 TABLETS BY MOUTH EVERY DAY spironolacton-hydrochlorothiaz [Aldactazide] 25-25 mg tablet 1 tab PO DAILY Qty: 90 3RF Discharge Orders: Discharge ED (Routine); Ordered 06/23/24 Ordered By: Mally Lopez Referrals: Jaron Pennington MD [Primary Care Provider] - Discharge Diet: Usual diet Discharge Activity: Increase activity as tolerated Patient Instructions: Syncope (ED), Urinary Tract Infection in Older Adults (ED) Activity Restrictions/Additional Instructions: Thank you for choosing [facility] for your healthcare needs today. Please realize this is an emergency room and that we are providing you with a medical screening exam and this may not be complete and all inclusive of all the testing and or work up that you may need to determine your ailment or severity of your illness. You have been screened and evaluated and felt safe for discharge. Health conditions do change or evolve sometimes and as such it is important that you follow up with your Primary Doctor to be re checked, 3-5 days is a general good time frame for follow up. You are always welcome to return to the ED for re assessment if your symptoms are worsening or you have new concerns Coding Level of Care Code ED Bromination Equipment Operator for Marla Marcus
[2024-06-23 10:21] LABS: Basophils % 0.5 %; Eosinophils # 0.1 10^3/uL (0.0-0.8); Eosinophils % 1.6 %; Hematocrit 38.9 % (36-47); Lymphocytes # 0.5 10^3/uL (0.8-4.8); Lymphocytes % 12.1 %; Mean Corpuscular HGB Conc 33.2 g/dL (30-55); Mean Corpuscular Hemoglobin 29.2 pg (27-33); Mean Platelet Volume 10.1 fL (7.4-10.4); Monocytes # 0.5 10^3/uL (0.2-0.9); Monocytes % 12.4 %; Neutrophils % 72.9 %; Nucleated Red Blood Cells % 0 %; Platelet Count 156 10^3/cmm (157-399); Red Blood Count 4.42 10^6/uL (3.85-5.65); Red Cell Distribution Width 12.8 % (12.1-15.1); White Blood Count 3.71 10^3/uL (3.29-11.43)
[2024-06-23 10:42] LABS: Alanine Aminotransferase 19 U/L (0-33); Albumin Level 4.4 g/dL (3.5-5.2); Alkaline Phosphatase 82 U/L (35-105); Anion Gap 18.1 (5-19); Aspartate Amino Transferase 22 U/L (0-32); Blood Urea Nitrogen 25 mg/dL (8-23); Carbon Dioxide 24 mmol/L (22-29); Chloride 97 mmol/L (98-107); Creatinine Clr Calc Pharmacy 48.8913; Globulin 2.4 g/dL (1.3-4.6); Glucose 161 mg/dL (65-115); Osmolality Calculated 288 mOsm/kg (285-295); Potassium 4.1 mmol/L (3.5-5.1); Sodium 135 mmol/L (136-145); Total Bilirubin 0.8 mg/dL (0.15-1.2); Total Protein 6.8 g/dL (6.6-8.7)
[2024-06-23 10:45] LABS: Troponin(5th) Baseline 13 ng/L (0-10)
[2024-06-23 11:43] VITALS: BP 142/68; BP 145/71; BP 151/79; PULSE 77; PULSE 95; PULSE 96
[2024-06-23 11:47] VITALS: BP 132/70; PULSE 90; O2SAT 98
--- NOTE | 2024-06-23 12:01 | ECG_ITS ---
[employer] Test Date: 2024-06-23 Pat Name: Jovanna Berg Department: Room: Gender: Female Photo Intern: : 1950 Requested By: Mally Luna Order Number: [id number] Reading MD: CALI LEWIS Measurements Intervals [place] Rate: 77 P: 49 SC: 186 QRS: -25 QRSD: 95 T: 43 QT: 367 QTc: 415 Interpretive Statements SINUS RHYTHM POSSIBLE ANTERIOR MYOCARDIAL INFARCTION , OF INDETERMINATE AGE [30 ms Q WAVE IN V3/V4, OR R < 0.2 mV IN V4] INFERIOR MYOCARDIAL INFARCTION , OF INDETERMINATE AGE [40+ ms Q WAVE AND/OR ST/T ABNORMALITY IN II/aVF] Compared to ECG 06/23/2024 11:03:08 No significant changes Electronically Signed On 06-23-2024 18:14:20 CDT by CALI LEWIS [id number]
[2024-06-23 12:11] LABS: Bilirubin Urine 1+ (Negative); Blood Urine Negative (Negative); Glucose Urine UA Negative (Normal); Ketones Urine Trace (Negative); Leukocyte Esterase Urine 1+ (Negative); Nitrate Urine Negative (Negative); Protein Urine 1+ (Negative); Specific Gravity, Urine 1.028 (1.005-1.030); Urine Appearance Cloudy (CLEAR); Urine Color Dark Yellow (Yellow)
[2024-06-23 12:13] LABS: Bacteria Urine 1+ /hpf
[2024-06-23 12:23] LABS: Add Urine Culture? Yes
[2024-06-23 12:24] LABS: Mucus Urine 1+ /hpf
[2024-06-23 12:35] LABS: Troponin 5 2HR 12.91 ng/L (0-10); Troponin 5 2HR Delta -0.09 ABS# (0-10)
[2024-06-23] MEDS: cefTRIAXone 1,000 mg SDV 1000 MG IVP (12:43)
[2024-06-23 12:44] VITALS: BP 110/64; PULSE 79; O2SAT 95
[2024-06-23 13:10] VITALS: BP 110/64; PULSE 78; O2SAT 98
--- NOTE | 2024-06-23 13:10 | PC.NURSE ---
CALLED [facility] TO [facility] DUE TO [facility] BEING CLOSED.
== END 2024-06-23 13:11 | disposition home or self-care (01) ==
PROVIDERS: Emergency Provider Emergency Medicine; PCP Internal Medicine
DX: R55 Syncope and collapse (principal); N39.0 Urinary tract infection, site not specified; Z79.84 Long term (current) use of oral hypoglycemic drugs; E11.9 Type 2 diabetes mellitus without complications
CPT/HCPCS: 70450; 80053; 81001; 84484; 85025; 87086; 93005; 96374; 99285; J0696

== ENCOUNTER → 2024-07-10 11:45 | Outpatient (BNVA) | payer MEDICARE, SELFPAY | PROVIDERS: PCP Internal Medicine; Referring Provider Internal Medicine; Visit Provider Specialist | DX: R20.0 Anesthesia of skin (principal); R20.2 Paresthesia of skin; G56.03 Carpal tunnel syndrome, bilateral upper limbs | CPT/HCPCS: 95910 ==

== ENCOUNTER → 2024-08-07 09:17 | Outpatient (BNVA) | payer MEDICARE, SELFPAY | PROVIDERS: PCP Internal Medicine; Visit Provider Physician Assistant | DX: G56.03 Carpal tunnel syndrome, bilateral upper limbs (principal) | CPT/HCPCS: 73130; 99204 ==

== ENCOUNTER 2024-08-08 08:41 | Day surgery (SDC) | payer MEDICARE, SELFPAY ==
[2024-08-08] VITALS (8 sets, daily range): BP systolic 136–163; BP diastolic 76–81; PULSE 69–87; RESP 12–20; TEMP 36–36.7; O2SAT 94–99; BMI 31.2
[2024-08-08] MEDS: sodium chloride 0.9% 1,000 ML 30 ML IV (09:00)
[2024-08-08] MEDS: ketorolac 30 mg/mL INJ IVP (09:13)
[2024-08-08] MEDS: scopolamine 1.5 Patch 1 PATCH TRANSDERMA (09:13)
[2024-08-08] MEDS: acetaminophen 1,000 MG/100 ML PIGGYBACK 400 MG IV (09:13)
[2024-08-08 09:14] LABS: Glucose Point of Care 147 mg/dL (70-110)
--- NOTE | 2024-08-08 09:24 | W.PM.OPSUD ---
Surgery/Procedure H&P Update DATE OF PROCEDURE: August 08, 2024 DATE H&P PERFORMED: 08/07/24 H&P UPDATE INFORMATION: I have reviewed H&P completed within last 30 days, I have examined patient prior to procedure and No changes to prior documentation PREOP DIAGNOSIS: Right carpal tunnel syndrome PRIMARY INDICATION FOR PROCEDURE: Right carpal tunnel syndrome PLANNED PROCEDURE: Operation Date: 08/08/24 10:20 Proposed Procedures p Carpal Tunnel Release(Right) - Rocky Dillard DO
--- NOTE | 2024-08-08 10:47 | P.ANESASSM_ITS ---
Pre-Anesthetic Assessment Height/Weight: Height 5 ft 2 in Weight 171 lb Temp Pulse Resp BP Pulse Ox O2 Del Method 96.8 F L 76 16 160/80 99 Room Air 08/08/24 08:58 08/08/24 08:58 08/08/24 08:58 08/08/24 09:13 08/08/24 08:58 08/08/24 08:58 Preop Diagnosis: Right carpal tunnel syndrome Operation Date: 08/08/24 10:20 Proposed Procedures p Carpal Tunnel Release(Right) - Rocky Dillard, DO Was Beta Cris taken within 24 hours: N/A Was Clonidine taken within 24 hours: N/A Last intake: Intake Last Liquid Date 08/07/24 Last Liquid Time 20:00 Last Solid Date 08/07/24 Last Solid Time 20:00 Social No alcohol and No tobacco Exam alert, oriented x 3, clear to auscultation bilaterally and regular rate & rhythm Airway Submandibular: within normal limits Cervical ROM: within normal limits Mallampati: Class III Dentition: full Anesthetic Plan ASA status: 3 Anesthesia: MAC Other: No prior issues with anesthesia NPO since yesterday History of type II DM, on insulin. Preop BS 147 Hypertension on valsartan preop BP 160/80 Labs reviewed Plan for MAC anesthetic with local via surgeon Medications/Allergies Home Medications Medication Instructions Recorded Confirmed Last Taken Type coenzyme Q10 200 mg capsule (Co 200 mg PO DAILY 01/23/20 08/07/24 1 Day Ago History Q-10) ~08/06/24 magnesium oxide 500 mg capsule 500 mg PO DAILY 01/23/20 08/07/24 1 Day Ago History ~08/06/24 multivitamin 1 tab PO DAILY 01/23/20 08/07/24 12/28/20 History cyanocobalamin (vitamin B-12) See Rx Instructions .Route 06/26/21 08/07/24 08/06/24 Rx 1,000 mcg/mL injection solution .COMPLEX #6 mL blood sugar diagnostic (True #100 ea 11/30/21 08/07/24 Unknown Rx Metrix Glucose Test Strip) triamcinolone acetonide 0.1 % 1 applic topical BID #80 grams 01/26/22 08/07/24 Unknown Rx topical ointment valsartan 320 mg tablet 320 mg PO DAILY #90 tabs 02/02/22 08/07/24 08/07/24 Rx desvenlafaxine succinate 50 mg 50 mg PO DAILY #90 tabs 02/15/22 08/07/24 08/07/24 Rx tablet,extended release 24 hr (Pristiq) metformin 500 mg tablet,extended See Rx Instructions .Route 04/07/22 08/07/24 08/07/24 Rx release 24 hr .COMPLEX #360 tabs spironolactone 25 1 tab PO DAILY #90 tabs 04/07/22 08/07/24 Unknown Rx mg-hydrochlorothiazide 25 mg tablet (Aldactazide) lancets 33 gauge (TRUEplus Lancets) 33 gauge .Route QID #100 ea 05/11/22 08/07/24 Unknown Rx meloxicam 15 mg tablet 15 mg PO DAILY #90 tabs 06/17/22 08/07/24 1 Day Ago Rx ~08/06/24 CAM Boot #1 ea 12/22/22 08/07/24 Unknown Rx dorzolamide 2 % eye drops 1 drp ophthalmic (eye) BID 08/07/24 08/07/24 Unknown History Allergies Allergy/AdvReac Type Severity Reaction Status Date / Time canagliflozin Allergy ALGY-Rash Verified 08/07/24 17:13 [From Invokamet] metformin [From Invokamet] Allergy ALGY-Rash Verified 08/07/24 17:13 [facility] Anesthesia Medical History Necrobiosis diabeticorum Glaucoma Primary insomnia Arthritis Benign hypertension Type 2 diabetes mellitus without complications Surgical History S/P lumpectomy, left breast (12/29/20) Status post colonoscopy Status post creation of urethral sling by suprapubic approach S/P tonsillectomy and adenoidectomy H/O stem cell transplant joint injection H/O hysterectomy with oophorectomy Family History Other Cancer Hypertension Social History Smoking and tobacco/nicotine status: unknown if used tobacco/nicotine Alcohol intake: never Substance/Drug Use: never Household members: spouse Housing: House Marital status: Current occupational status: retired Data Anesthesia Cardiac Studies: No Data to Display
[2024-08-08] MEDS: ceFAZolin 2,000 MG in sodium chloride 0.9% (plus) 50 ML 100 MG IV (12:24)
[2024-08-08] MEDS: lidocaine-epi 1% 20 mL INJ INJECTION (12:52)
[2024-08-08] MEDS: ROPivacaine 0.5% SDV 30 mL 150 MG INJECTION (12:52)
--- NOTE | 2024-08-08 13:39 | P.BOP_ITS ---
Date of Procedure: [08/08/2020] Surgeon: [Dr. Dillard, DO] Gas Station Attendant(s): [N/A] Procedure(s) performed: [Right Carpal tunnel Release] Findings of the procedure(s): [Right carpal tunnel syndrome. Procedure went well and as planned] Estimated blood loss: [5 mL] Specimen(s) removed: [N/A] Post-operative diagnosis: [Right carpal tunnel syndrome]
--- NOTE | 2024-08-08 14:13 | ANE.PACU2 ---
Inpatient post-anesthesia follow up: Airway intact: Yes Vital signs: Temperature 97.8 F Pulse Rate 69 Respiratory Rate 18 Blood Pressure 163/81 Pulse Oximetry 97 Oxygen Delivery Me thod Room Air Oxygen Flow Rate Fraction of Inspir ed Oxygen Hydration adequate: Yes Nausea and vomiting: No Pain level: 1 Mental status: Baseline
--- NOTE | 2024-08-08 17:38 | P.OP_ITS ---
Operative Report Date of procedure: August 08, 2024 Surgeon: Rocky Dillard DO Procedure: Preop Dx Right Carpal tunnel syndrome Post-op diagnosis: Same Procedure done: 1.?Right carpal tunnel?release Surgeon: Rocky Dillard DO Anesthesia: MAC (Local) Estimated blood loss: [5?]mL Tourniquet time [15 ]minutes IV fluids: See anesthesia?record Complications: None Findings: See operative?report narrative Condition: stable Disposition: same day Brief History: Patient is a pleasant [74? ]year-old [ F] with?right carpal tunnel syndrome.? Patient has been worked up in the outpatient setting findings and physical examination consistent with this.? Patient nerve conduction studies consistent with carpal tunnel syndrome.? We detailed out patient's?risk benefits complication alternatives with surgical and nonsurgical treatment options. Through shared decision making, patient agrees to proceed with surgical intervention of the Right carpal tunnel?release .? Patient understands and agrees with current plan.? All questions answered.? Patient elects to proceed with surgical intervention with carpal tunnel?release. Procedure: Patient seen and evaluated in the preoperative holding area.? Consent was?reviewed and signed with patient.? Correct extremity was marked.? Patient was seen evaluated by the anesthesia department once cleared for surgery was brought back to the operative suite.? Patient was kept on [facility] in supine position all bony prominences were well-padded patient properly secured to the bed.??Right upper extremity was then placed onto an armboard.? A nonsterile tourniquet was applied to the?RIght upper arm.? Patient underwent anesthesia per the anesthesia department.? Patient's?Right upper extremity was then prepped and draped in standard orthopedic fashion.? Final timeout performed.? Patient?received appropriate preoperative antibiotics. Under sterile aseptic technique patient?received local anesthesia over the preplanned carpal tunnel incision site. Esmarch was used to exsanguinate the?Right upper extremity and tourniquet was insufflated to 250 mmHg. A standard mini open?Right carpal tunnel incision was made.? Starting distally at Sandoval's cardinal line in line with the fourth?ray extending proximally distal to the wrist crease centered over the carpal tunnel.? Sharp scalpel incision was made through skin and subcutaneous tissue.? Self- retaining?retractor was placed and the palmar fascia was identified.? This was then split longitudinally and direct visualization of the transverse carpal ligament was then made.? I then utilizing scalpel feathered through the transverse carpal ligament until I entered the floor of the transverse carpal tunnel ligament into the carpal tunnel.? Next I switched to dissection scissors and completed my?release of the transverse carpal ligament distally with care to protect the?recurrent motor branch.? I completely?released into the palmar fat and until no entrapment was noted distally.? Care was made to protect the superficial palmar arch during my distal dissection.?? Next I utilized a nasal speculum placed on top of the transverse carpal ligament and utilize this to?retract the subcutaneous fat and tissue and under direct loupe magnification was able to identify the transverse carpal ligament.? Next I then placed a [place] underneath the transverse carpal tunnel ligament to protect the contents of the carpal tunnel and subsequently utilizing dissection scissors under loupe magnification completely?released the transverse carpal ligament proximally into the median antebrachial fascia.? Care was made to protect the palmar cutaneous branch by keeping my scissors curved ulnarly.? Once completely?released, I then placed my [place] and had appropriate decompression of the carpal tunnel proximally as well as distally.? I then inspected the contents of the carpal tunnel which showed an hourglass shape of the median nerve showing its compression.? No masses were noted.? Tendons appeared healthy.? Wound was then thoroughly irrigated.? Tourniquet deflated.? Hemostasis satisfactory with bipolar electrocautery.? I then closed the incision with interrupted nylon stitches.? Xeroform 4 x 4's and a bulky soft dressing was applied.? Patient was then awakened from anesthesia and taken to PACU in stable condition.? Patient tolerated procedure without complications. Disposition: Patient taken to PACU in stable condition?recovering well.? Dressing clean dry and intact.? Patient will?receive appropriate discharge instructions as well as pain medication postoperatively.? Patient to follow-up with me in the office in 2 weeks.? They understand they may be weightbearing as tolerated to the?right hand.? Patient should keep incision clean dry and intact.? Patient understands if any questions or concerns may contact the office.
== END 2024-08-08 14:14 | disposition home or self-care (01) ==
PROVIDERS: PCP Internal Medicine; Visit Provider Student in an Organized Health Care Education/Training Program
PROC: (CPT 64721; principal; 2024-08-08 10:20)
DX: G56.01 Carpal tunnel syndrome, right upper limb (principal); E11.9 Type 2 diabetes mellitus without complications; Z79.4 Long term (current) use of insulin; I10 Essential (primary) hypertension; M19.90 Unspecified osteoarthritis, unspecified site
CPT/HCPCS: 64721; 36416; 82962; J0131; J0690; J1885; J2704; J2795; J3010; J7030

== ENCOUNTER → 2024-08-23 14:14 | Outpatient (BNVA) | payer MEDICARE, SELFPAY | PROVIDERS: PCP Internal Medicine; Visit Provider Physician Assistant | DX: Z98.890 Other specified postprocedural states (principal) | CPT/HCPCS: 99024 ==

== ENCOUNTER → 2024-10-04 14:05 | Outpatient (BNVA) | payer MEDICARE, SELFPAY | PROVIDERS: PCP Internal Medicine; Visit Provider Physician Assistant | DX: Z98.890 Other specified postprocedural states (principal) | CPT/HCPCS: 99024 ==

== ENCOUNTER → 2025-04-24 08:40 | Outpatient (BNVA) | payer MEDICARE, SELFPAY | PROVIDERS: PCP Internal Medicine; Visit Provider Physician Assistant | DX: G56.02 Carpal tunnel syndrome, left upper limb (principal) | CPT/HCPCS: 99214 ==

== ENCOUNTER 2025-05-31 06:41 | Day surgery (SDC) | payer MEDICARE, SELFPAY ==
[2025-05-31] VITALS (7 sets, daily range): BP systolic 89–155; BP diastolic 62–93; PULSE 79–99; RESP 10–18; TEMP 36.1–36.6; O2SAT 93–98; BMI 31.2
--- NOTE | 2025-05-31 06:44 | ANES.PREANE2 ---
Pre-Anesthetic Assessment Height/Weight: Height 5 ft 2 in Preop Diagnosis: Carpal tunnel syndrome Operation Date: 05/31/25 08:00 Proposed Procedures p LEFT Carpal Tunnel Release(Left) - Rocky Dillard DO Was Beta Cris taken within 24 hours: N/A Was Clonidine taken within 24 hours: N/A Social No alcohol and No tobacco Exam alert, oriented x 3, clear to auscultation bilaterally and regular rate & rhythm Airway Submandibular: within normal limits Cervical ROM: within normal limits Mallampati: Class III Dentition: full Anesthetic Plan ASA status: 3 Anesthesia: MAC Other: No prior issues with anesthesia NPO since yesterday History of type II DM, on insulin. will check Preop BS Hypertension on valsartan preop BP 160/80 Labs reviewed Plan for MAC anesthetic with local via surgeon Medications/Allergies Home Medications ?Medication ?Instructions ?Recorded ?Confirmed ?Last Taken ?Type coenzyme Q10 200 mg capsule (Co 200 mg PO DAILY 01/23/20 05/30/25 05/30/25 History Q-10) magnesium oxide 500 mg capsule 500 mg PO DAILY 01/23/20 05/30/25 05/30/25 History multivitamin 1 tab PO DAILY 01/23/20 05/30/25 05/30/25 History blood sugar diagnostic (True #100 ea 11/30/21 04/24/25 Unknown Rx Metrix Glucose Test Strip) desvenlafaxine succinate 50 mg 50 mg PO DAILY #90 tabs 02/15/22 05/30/25 05/30/25 Rx tablet,extended release 24 hr (Pristiq) spironolactone 25 1 tab PO DAILY #90 tabs 04/07/22 05/30/25 05/30/25 Rx mg-hydrochlorothiazide 25 mg tablet (Aldactazide) lancets 33 gauge (TRUEplus Lancets) 33 gauge .Route QID #100 ea 05/11/22 05/30/25 Unknown Rx meloxicam 15 mg tablet 15 mg PO DAILY #90 tabs 06/17/22 05/30/25 05/22/25 Rx CAM Boot #1 ea 12/22/22 04/24/25 Unknown Rx biotin 10,000 mcg chewable tablet 10,000 mcg PO DAILY 05/30/25 05/30/25 05/30/25 History (Hair, Skin and Nails (biotin)) brimonidine 0.2 % eye drops 1 drp ophthalmic (eye) BID 05/30/25 05/30/25 05/30/25 History cholecalciferol (vitamin D3) 25 25 mcg PO DAILY 05/30/25 05/30/25 05/30/25 History mcg (1,000 unit) tablet (Vitamin D3) cyanocobalamin (vitamin B-12) 1,000 mcg IM .Q2WEEK 05/30/25 05/30/25 05/15/25 History 1,000 mcg/mL injection solution glimepiride 4 mg tablet 4 mg PO BID 05/30/25 05/30/25 05/30/25 History metformin 500 mg tablet,extended 2,000 mg PO DAILY 05/30/25 05/30/25 05/29/25 History release 24 hr pantoprazole 40 mg tablet,delayed 40 mg PO DAILY 05/30/25 05/30/25 05/30/25 History release prednisolone acetate 1 % eye 1 drp ophthalmic (eye) DAILY 05/30/25 05/30/25 05/30/25 History drops,suspension valsartan 320 mg tablet 160 mg PO DAILY 05/30/25 05/30/25 05/30/25 History Allergies Allergy/AdvReac Type Severity Reaction Status Date / Time amlodipine Allergy swelling Verified 05/31/25 06:53 canagliflozin (From Allergy ALGY-Rash Verified 05/31/25 06:53 Invokamet) metformin (From Invokamet) Allergy ALGY-Rash Verified 05/31/25 06:53 [facility] Anesthesia Medical History (Updated 04/24/25 @ 09:38 by RAVI Hennessy) Necrobiosis diabeticorum Glaucoma Primary insomnia Arthritis Benign hypertension Type 2 diabetes mellitus without complications Surgical History S/P lumpectomy, left breast (12/29/20) Status post colonoscopy Status post creation of urethral sling by suprapubic approach S/P tonsillectomy and adenoidectomy H/O stem cell transplant joint injection H/O hysterectomy with oophorectomy Family History Other Cancer Hypertension Social History Smoking and tobacco/nicotine status: never used tobacco/nicotine Alcohol intake: never Substance/Drug Use: never Household members: spouse Housing: House Marital status: Current occupational status: retired
--- NOTE | 2025-05-31 06:59 | W.PM.OPSFHP ---
Same Day Surgery H&P Indication for Procedure/HPI DATE OF PROCEDURE: May 31, 2025 CHIEF COMPLAINT/INDICATIONFOR SURGICAL PROCEDURE: Left carpal tunnel syndrome PREOP DIAGNOSIS: Left carpal tunnel syndrome PLANNED PROCEDURE: Operation Date: 05/31/25 08:00 Proposed Procedures p LEFT Carpal Tunnel Release(Left) - Rocky Dillard, DO Medications/Allergies* Home Medications ?Medication ?Instructions ?Recorded ?Confirmed ?Type coenzyme Q10 200 mg capsule (Co 200 mg PO DAILY 01/23/20 05/30/25 History Q-10) magnesium oxide 500 mg capsule 500 mg PO DAILY 01/23/20 05/30/25 History multivitamin 1 tab PO DAILY 01/23/20 05/30/25 History biotin 10,000 mcg chewable tablet 10,000 mcg PO DAILY 05/30/25 05/30/25 History (Hair, Skin and Nails (biotin)) brimonidine 0.2 % eye drops 1 drp ophthalmic (eye) BID 05/30/25 05/30/25 History cholecalciferol (vitamin D3) 25 25 mcg PO DAILY 05/30/25 05/30/25 History mcg (1,000 unit) tablet (Vitamin D3) cyanocobalamin (vitamin B-12) 1,000 mcg IM .Q2WEEK 05/30/25 05/30/25 History 1,000 mcg/mL injection solution glimepiride 4 mg tablet 4 mg PO BID 05/30/25 05/30/25 History metformin 500 mg tablet,extended 2,000 mg PO DAILY 05/30/25 05/30/25 History release 24 hr pantoprazole 40 mg tablet,delayed 40 mg PO DAILY 05/30/25 05/30/25 History release prednisolone acetate 1 % eye 1 drp ophthalmic (eye) DAILY 05/30/25 05/30/25 History drops,suspension valsartan 320 mg tablet 160 mg PO DAILY 05/30/25 05/30/25 History Allergies/Adverse Reactions Allergy/AdvReac Type Severity Reaction Status Date / Time amlodipine Allergy swelling Verified 05/31/25 06:53 canagliflozin (From Allergy ALGY-Rash Verified 05/31/25 06:53 Invokamet) metformin (From Invokamet) Allergy ALGY-Rash Verified 05/31/25 06:53 Pertinent History/Comorbid Conditions* Medical History (Updated 04/24/25 @ 09:38 by RAVI Hennessy) Necrobiosis diabeticorum Glaucoma Primary insomnia Arthritis Benign hypertension Type 2 diabetes mellitus without complications Surgical History (Updated 08/23/24 @ 14:43 by RAVI Hennessy) S/P lumpectomy, left breast (12/29/20) Status post colonoscopy Status post creation of urethral sling by suprapubic approach S/P tonsillectomy and adenoidectomy H/O stem cell transplant joint injection H/O hysterectomy with oophorectomy Family History (Updated 01/23/20 @ 09:31 by Nallely Pires LPN) Cancer Hypertension Social History Smoking and tobacco/nicotine status: never used tobacco/nicotine Alcohol intake: never Substance/Drug Use: never Household members: spouse Housing: House Marital status: Current occupational status: retired Pertinent Exam Findings alert, oriented x 3, operative site marked and procedure specific exam findings Please refer to detailed orthopedic examination on 04/24/2025 listed below: Bilateral hand and elbow exam -positive Tinel's and positive Phalen's test. no thenar atrophy and nomuscle weakness. Full range of motion in fingers and wrist and fingers are warm and well-perfused with normal cap refill under 2 seconds. Radial pulse 2+, no intrinsic muscle weakness noted. Elbow exam-negative Tinel's test Recommendations Risks and benefits of procedure reviewed and Patient/family agree to proceed Surgery/Procedure today Other Plans: Plan to proceed to the OR today for left carpal tunnel release. Patient understands Anzemet's procedure the risk benefits complication alternatives surgical nonsurgical treatment options. Understanding risk of surgery patient elects proceed with surgical invention. All questions answered at this time. Coding Level of Care Code Acute Code for Chg Fwd
[2025-05-31] MEDS: acetaminophen 1,000 MG/100 ML PIGGYBACK 400 MG IV (07:13)
[2025-05-31] MEDS: ceFAZolin 2,000 MG in sodium chloride 0.9% (plus) 50 ML 100 MG IV (07:49)
[2025-05-31] MEDS: lidocaine-epi 1% 20 mL INJ INJECTION (08:15)
[2025-05-31] MEDS: ROPivacaine 0.5% SDV 30 mL 150 MG INJECTION (08:15)
--- NOTE | 2025-05-31 08:17 | P.BOP_ITS ---
Date of Procedure: 05/31/2025 Surgeon: Rocky Dillard DO Chief Fundraising Officer(s): None Procedure(s) performed: Left carpal tunnel release Findings of the procedure(s): Patient underwent procedure as planned without issues or complications taken recovery in stable condition Estimated blood loss: 3 mL Specimen(s) removed: None Post-operative diagnosis: Left carpal tunnel syndrome
--- NOTE | 2025-05-31 08:19 | P.OP_ITS ---
Operative Report Date of procedure: May 31, 2025 Surgeon: Rocky Dillard DO Procedure: Preop Diagnosis: Left Carpal Tunnel Syndrome Post-op diagnosis: Same Procedure done: 1. Left carpal tunnel release Surgeon: Rocky Dillard DO Anesthesia: MAC (Local) Estimated blood loss: 3 mL Tourniquet time 4 minutes IV fluids: See anesthesia record Complications: None Findings: See operative report narrative Condition: stable Disposition: same day Brief History: Patient is a pleasant 74 year-old female with left carpal tunnel syndrome. Patient has been worked up in the outpatient setting findings and physical examination consistent with this. Patient nerve conduction studies consistent with carpal tunnel syndrome. We detailed out patient's risk benefits complication alternatives with surgical and nonsurgical treatment options. Through shared decision making, patient agrees to proceed with surgical intervention of the left carpal tunnel release . Patient understands and agrees with current plan. All questions answered. Patient elects to proceed with surgical intervention with carpal tunnel release. Procedure: Patient seen and evaluated in the preoperative holding area. Consent was reviewed and signed with patient. Correct extremity was marked. Patient was seen evaluated by the anesthesia department once cleared for surgery was brought back to the operative suite. Patient was kept on [facility] in supine position all bony prominences were well-padded patient properly secured to the bed. Left upper extremity was then placed onto an armboard. A nonsterile tourniquet was applied to the left upper arm. Patient underwent anesthesia per the anesthesia department. Patient's left upper extremity was then prepped and draped in standard orthopedic fashion. Final timeout performed. Patient rece ived appropriate preoperative antibiotics. Under sterile aseptic technique patient received local anesthesia over the preplanned carpal tunnel incision site. Esmarch was used to exsanguinate the left upper extremity and tourniquet was insufflated to 250 mmHg. A standard mini open left carpal tunnel incision was made. Starting distally at Sandoval's cardinal line in line with the fourth ray extending proximally distal to the wrist crease centered over the carpal tunnel. Sharp scalpel incision was made through skin and subcutaneous tissue. Self-retaining retractor was placed and the palmar fascia was identified. This was then split longitudinally and direct visualization of the transverse carpal ligament was then made. I then utilizing scalpel feathered through the transverse carpal ligament until I entered the floor of the transverse carpal tunnel ligament into the carpal tunnel. Next I switched to dissection scissors and completed my release of the transverse carpal ligament distally with care to protect the recurrent motor branch. I completely released into the palmar fat and until no entrapment was noted distally. Care was made to protect the superficial palmar arch during my distal dissection. Next, nasal speculum placed proximally for retraction of soft tissue on top of the Transverse carpal ligament. Next the contents of the carpal tunnel where protected and and subsequently utilizing dissection scissors under loupe magnification completely released the transverse carpal ligament proximally into the antebrachial fascia. Care was made to protect the palmar cutaneous branch by keeping my scissors curved ulnarly. Once completely released, I then placed my [place] and had appropriate decompression of the carpal tunnel proximally as well as distally. I then inspected the contents of the carpal tunnel which showed an hourglass shape of the median nerve showing its compression. No masses were noted. Tendons appeared healthy. Wound was then thoroughly ir rigated. Tourniquet deflated. Hemostasis satisfactory with bipolar electrocautery. I then closed the incision with interrupted nylon stitches. Xeroform 4 x 4's and a bulky soft dressing was applied to the left upper extremity. Patient was then awakened from anesthesia and taken to PACU in stable condition. Patient tolerated procedure without complications. Disposition: Patient taken to PACU in stable condition recovering well. Dressing clean dry and intact. Patient will receive appropriate discharge instructions as well as pain medication postoperatively. Patient to follow-up with me in the office in 2 weeks. They understand they may be weightbearing as tolerated to the left hand. Patient should keep incision clean dry and intact. Patient understands if any questions or concerns may contact the office.
--- NOTE | 2025-05-31 09:13 | ANE.PACU2 ---
Inpatient post-anesthesia follow up: Airway intact: Yes Vital signs: Temperature 98 F Pulse Rate 89 Respiratory Rate 16 Blood Pressure 125/77 Pulse Oximetry 98 Oxygen Delivery Me thod Room Air Oxygen Flow Rate Fraction of Inspir ed Oxygen Hydration adequate: Yes Nausea and vomiting: No Pain level: 1 Mental status: Baseline
== END 2025-05-31 09:13 | disposition home or self-care (01) ==
PROVIDERS: PCP Internal Medicine; Visit Provider Student in an Organized Health Care Education/Training Program
PROC: (CPT 64721; principal; 2025-05-31 08:00)
DX: G56.02 Carpal tunnel syndrome, left upper limb (principal); K21.9 Gastro-esophageal reflux disease without esophagitis; Z79.84 Long term (current) use of oral hypoglycemic drugs; E11.9 Type 2 diabetes mellitus without complications; I10 Essential (primary) hypertension
CPT/HCPCS: 64721; 36416; 82962; J0131; J0690; J1885; J2704; J2795; J3010; J7030; J9999

== ENCOUNTER → 2025-06-14 10:24 | Outpatient (BNVA) | payer MEDICARE, SELFPAY | PROVIDERS: PCP Internal Medicine; Visit Provider Physician Assistant | DX: Z98.890 Other specified postprocedural states (principal) | CPT/HCPCS: 99024 ==

== ENCOUNTER 2025-08-07 11:53 | Outpatient (CLI) | payer MEDICARE, SELFPAY ==
[2025-08-07 13:13] LABS: Creatinine Urine, Random 71 mg/dL (28-217); Microalbum Creatinine Ratio Ur 14 mg/dL (0-20)
== END 2025-08-07 11:54 | disposition home or self-care (01) ==
LOC: LAB 11:56
PROVIDERS: PCP Internal Medicine; Visit Provider Internal Medicine
DX: E11.9 Type 2 diabetes mellitus without complications (principal)
CPT/HCPCS: 82044